=== PATIENT | female | born 1950 | race Caucasian/White ===

== ENCOUNTER → 2020-05-22 | Outpatient (CLI) | payer MEDICARE | LOC: US 10:00 → HEART 5 11:00 | DX: M79.605 Pain in left leg (principal); M79.604 Pain in right leg; M79.671 Pain in right foot; M79.672 Pain in left foot; I87.8 Other specified disorders of veins; I83.91 Asymptomatic varicose veins of right lower extremity | CPT/HCPCS: 93970 ==